=== PATIENT | male | born 1970 | race Caucasian/White ===

== ENCOUNTER 2024-10-04 15:13 | Outpatient (CLI) | payer BC, SELFPAY ==
--- NOTE | ~2024-10-04 | CT_ITS ---
EXAMINATION: CT pelvis wo con DATE: 10/04/2024 15:33 INDICATION: Hydrocele. TECHNIQUE: Computed tomography (CT) of the pelvis was performed without intravenous contrast. Automat ed exposure control and iterative reconstruction technique were employed. The dose-length product was 738.84 mGy-cm. COMPARISON: Ultrasound testes 10/04/2024 FINDINGS: There is diverticulosis of the colon without evidence of diverticulitis. There are no patho logically enlarged lymph nodes. There is no free intraperitoneal fluid. The prostate is mildly enlarg ed. There is a large left hydrocele. There is a small right hydrocele. There is moderate lumbar spond ylosis. IMPRESSION: 1. Large left hydrocele and small right hydrocele. Reviewed, dictated and finalized at location A. INSPECTOR AND PATCHER
--- NOTE | ~2024-10-04 | US_ITS ---
TESTICULAR ULTRASOUND (Doppler ultrasound interrogation techniques used as needed for this exam.) Ordering provider: Augusto Peralta MD History: . Hydrocele . Comparison: None. FINDINGS: TESTICLES: Normal in size. The right measures 4.6x 3.2x 3.8 cm and the left measures 4.7x 2.2x 2.2 cm . Normal echogenicity bilaterally without mass lesion. Normal Doppler flow bilaterally. Hyperechoic area is seen measuring 6 x 7 x 6 mm. Anechoic area is seen in the left testicular measuri ng 1.3 x 0.6 x 1 cm. EPIDIDYMIDES: Normal in size. The right measures 1.2x 0.7 cm and the left was not well demonstrated. Normal echogenicity in the right side. The right is demonstrate normal Doppler flow. HYDROCELE: Small on the right side and large on the left. VARICOCELE: None. OTHER ABNORMALITY: None seen. IMPRESSION: Large left hydrocele with internal echoes which may indicate infection or hemorrhage and small right hydrocele. Nonvisualization of the left epididymis. Small echogenic area in the left testicle may be an appendage. Left testicular/epididymal cyst. Otherwise, normal testicular ultrasound. Reviewed, dictated and finalized at location A. SPACE PHYSIOLOGICAL TECHNICIAN IMPRESSION: Large left hydrocele with internal echoes which may indicate infection or hemor rhage and small right hydrocele. Nonvisualization of the left epididymis. Small echogenic area in the left testicle may be an appendage. Left testicular/epidi dymal cyst. Otherwise, normal testicular ultrasound.
== END 2024-10-04 15:14 | disposition home or self-care (01) ==
PROVIDERS: PCP Urology; Visit Provider Urology
DX: N43.3 Hydrocele, unspecified (principal)
CPT/HCPCS: 72192; 76870; 93976